=== PATIENT | male | born 1995 | race Caucasian/White ===

== ENCOUNTER 2018-01-08 13:07 | Emergency (ER) | payer OTHER ==
--- NOTE | 2018-01-08 13:12 | EDM.PDOC ---
ED HPI GENERAL MEDICAL PROBLEM - General Chief Complaint: Abdominal Pain Stated Complaint: BACK AND STOMACH HURTS Time Seen by Provider: 01/08/18 13:11 Source of Information: Reports: Patient History Limitations: Reports: No Limitations - History of Present Illness INITIAL COMMENTS - FREE TEXT/NARRATIVE: HISTORY AND PHYSICAL: History of present illness: Patient is a 22-year-old male who presents to the emergency room today with complaints of left low back pain 1 month. He states intermittently the pain does go to the left lower quadrant. No chills, chest pain, shortness of breath or cough. Denies any nausea, vomiting, diarrhea, constipation or dysuria. Denies any testicular pain, swelling or erythema. No concerns of STD eyes. Review of systems: As per history of present illness and below otherwise all systems reviewed and negative. Past medical history: As per history of present illness and as reviewed below otherwise noncontributory. Surgical history: As per history of present illness and as reviewed below otherwise noncontributory. Social history: No reported history of drug or alcohol abuse. Family history: As per history of present illness and as reviewed below otherwise noncontributory. Physical exam: General: Well-developed and well-nourished 22-year-old male. Alert and oriented. Nontoxic appearing and in no acute distress. HEENT: Atraumatic, normocephalic, pupils equal and reactive bilaterally, negative for conjunctival pallor or scleral icterus, mucous membranes moist, throat clear, neck supple, nontender, trachea midline. No drooling or trismus noted. No meningeal signs Lungs: Clear to auscultation, breath sounds equal bilaterally, chest nontender. Heart: S1S2, regular rate and rhythm without overt murmur Abdomen: Soft, nondistended, nontender. Negative for masses or hepatosplenomegaly. Negative for costovertebral tenderness. Pelvis: Stable nontender. Genitourinary: Deferred. Rectal: Deferred. Skin: Intact, warm, dry. No lesions or rashes noted. Extremities: Atraumatic, negative for cords or calf pain. Neurovascular unremarkable. C-spine/Back: No pinpoint vertebral tenderness upon palpation. No crepitus, step -offs or obvious deformities noted. He does have some paraspinous lumbar muscular pain to the left side. Denies any urinary or fecal incontinence. Denies any numbness or tingling to distal extremity.. Neuro: Awake, alert, oriented. Cranial nerves II through XII unremarkable. Cerebellum unremarkable. Motor and sensory unremarkable throughout. Exam nonfocal. Notes: Lab work is unremarkable. Upon my physical examination it does appear to be muscle related. He has pain when palpating to the left lumbar region. Currently is not having any abdominal pain or groin discomfort. We will give him Flexeril diclofenac with education. Encouraged him to follow up with his primary care provider if symptoms do not improve. He voices understanding and is agreeable to plan of care. Denies any further questions or concerns at this time. Diagnostics: CBC, CMP, UA Therapeutics: NOne Prescription: Flexeril (#20) Diclofenac (#30) Impression: Low back Pain Plan: 1. Please rest and ice the area. 2. Take your medications as directed. Flexeril may cause drowsiness a do not take it will driving her needing to be functioning outside of the house. Do not take any additional NSAID such as ibuprofen or Aleve while taking the diclofenac. Please take with food. 3. Follow-up with your primary care provider in the next 1-2 days. Return to the ED as needed and as discussed. Definitive disposition and diagnosis as appropriate pending reevaluation and review of above. Left Abdomen Pain Score (Numeric/FACES): 7 - Related Data Allergies Allergy/AdvReac Type Severity Reaction Status Date / Time No Known Allergies Allergy Verified 01/08/18 13:28 Home Meds: Home Meds . [No Known Home Meds] 01/08/18 [History] ED ROS GENERAL - Review of Systems Review Of Systems: ROS reveals no pertinent complaints other than HPI. ED EXAM, GI/ABD - Physical Exam Exam: See Below (See dictation) Course - Vital Signs Last Recorded V/S: Last Vital Signs Temp 97.4 F 01/08/18 13:26 Pulse 59 L 01/08/18 13:26 Resp 18 01/08/18 13:26 BP 122/71 01/08/18 13:26 Pulse Ox 97 01/08/18 13:26 - Orders/Labs/Meds Orders: Active Orders 24 hr Category Date Time Status UA W/MICROSCOPIC [URIN] Stat Lab 01/08/18 13:50 Ordered Labs: Laboratory Tests 01/08/18 01/08/18 01/08/18 Range/Units 13:48 13:48 13:50 WBC 5.97 (4.0-11.0) K/uL RBC 4.96 (4.50-5.90) M/uL Hgb 15.9 (13.0-17.0) g/dL Hct 45.5 (38.0-50.0) % MCV 91.7 (80.0-98.0) fL MCH 32.1 H (27.0-32.0) pg MCHC 34.9 (31.0-37.0) g/dL RDW Std Deviation 42.8 (28.0-62.0) fl RDW Coeff of [place] 13 (11.0-15.0) % Plt Count 222 (150-400) K/uL MPV 10.10 (7.40-12.00) fL Neut % (Auto) 55.5 (48.0-80.0) % Lymph % (Auto) 34.8 (16.0-40.0) % [place] % (Auto) 8.2 (0.0-15.0) % Eos % (Auto) 1.2 (0.0-7.0) % Baso % (Auto) 0.3 (0.0-1.5) % Neut # (Auto) 3.3 (1.4-5.7) K/uL Lymph # (Auto) 2.1 (0.6-2.4) K/uL [place] # (Auto) 0.5 (0.0-0.8) K/uL Eos # (Auto) 0.1 (0.0-0.7) K/uL Baso # (Auto) 0.0 (0.0-0.1) K/uL Nucleated RBC % 0.0 /100WBC Nucleated RBCs # 0 K/uL Sodium 140 (136-148) mmol/L Potassium 4.5 (3.5-5.1) mmol/L Chloride 106 (98-107) mmol/L Carbon Dioxide 29.4 (21.0-32.0) mmol/L BUN 14 (7.0-18.0) mg/dL Creatinine 1.1 (0.8-1.3) mg/dL Est Cr Clr Drug Dosing 105.34 mL/min Estimated GFR (MDRD) > 60.0 ml/min Glucose 97 (74-106) mg/dL Calcium 9.3 (8.5-10.1) mg/dL Total Bilirubin 0.3 (0.2-1.0) mg/dL AST 26 (15-37) IU/L ALT 32 (14-63) IU/L Alkaline Phosphatase 66 (46-116) U/L Total Protein 7.6 (6.4-8.2) g/dL Albumin 4.3 (3.4-5.0) g/dL Globulin 3.3 (2.0-3.5) g/dL Albumin/Globulin Ratio 1.3 (1.3-2.8) Urine Color YELLOW Urine Appearance SLT CLOUDY Urine pH 7.0 (5.0-8.0) Ur Specific [place] 1.010 (1.001-1.035) Urine Protein NEGATIVE (NEGATIVE) mg/dL Urine Glucose (UA) NEGATIVE (NEGATIVE) mg/dL Urine Ketones NEGATIVE (NEGATIVE) mg/dL Urine Occult Blood NEGATIVE (NEGATIVE) Urine Nitrite NEGATIVE (NEGATIVE) Urine Bilirubin NEGATIVE (NEGATIVE) Urine Urobilinogen 0.2 (<2.0) EU/dL Ur Leukocyte Esterase TRACE (NEGATIVE) Urine RBC NONE SEEN (0-2/HPF) Urine WBC 0-2 (0-5/HPF) Ur Epithelial Cells RARE (NONE-FEW) Amorphous Sediment MODERATE (NEGATIVE) Urine Bacteria RARE (NEGATIVE) Departure - Departure Time of Disposition: 14:20 Disposition: Home, Self-Care 01 Clinical Impression: Lumbar back pain - Discharge Information Instructions: Back Pain, Adult, [id number] Referrals: PCP,None [Primary Care Provider] - Forms: ED Department Discharge Additional Instructions: The following information is given to patients seen in the emergency department who are being discharged to home. This information is to outline your options for follow-up care. We provide all patients seen in our emergency department with a follow-up referral. The need for follow-up, as well as the timing and circumstances, are variable depending upon the specifics of your emergency department visit. If you don't have a primary care physician on staff, we will provide you with a referral. We always advise you to contact your personal physician following an emergency department visit to inform them of the circumstance of the visit and for follow-up with them and/or the need for any referrals to a consulting specialist. The emergency department will also refer you to a specialist when appropriate. This referral assures that you have the opportunity for follow-up care with a specialist. All of these measure are taken in an effort to provide you with optimal care, which includes your follow-up. Under all circumstances we always encourage you to contact your private physician who remains a resource for coordinating your care. When calling for follow-up care, please make the office aware that this follow-up is from your recent emergency room visit. If for any reason you are refused follow-up, please contact the [facility] Emergency Department at and asked to speak to the emergency department charge nurse. [facility] [address] [place] [address] 1. Please rest and ice the area. 2. Take your medications as directed. Flexeril may cause drowsiness a do not take it will driving her needing to be functioning outside of the house. Do not take any additional NSAID such as ibuprofen or Aleve while taking the diclofenac. Please take with food. 3. Follow-up with your primary care provider in the next 1-2 days. Return to the ED as needed and as discussed. - My Orders Last 24 Hours: My Active Orders 01/08/18 13:50 UA W/MICROSCOPIC [URIN] Stat - Assessment/Plan Last 24 Hours: My Active Orders 01/08/18 13:50 UA W/MICROSCOPIC [URIN] Stat
[2018-01-08 14:15] LABS: CHLORIDE,CL 106 mmol/L (98-107); SODIUM,NA 140 mmol/L (136-148)
== END 2018-01-08 14:33 | disposition home or self-care (01) ==
LOC: MW.ED 13:07
DX: M54.5 Low back pain (principal)
CPT/HCPCS: 36415; 80053; 81001; 85025; 99284

== ENCOUNTER 2019-03-10 14:38 | Emergency (ER) | payer BC, OTHER ==
--- NOTE | 2019-03-10 14:59 | EDM.PDOC ---
ED HPI GENERAL MEDICAL PROBLEM - General Chief Complaint: Genitourinary Problem Stated Complaint: TESTICULAR PAIN Time Seen by Provider: 03/10/19 14:44 Source of Information: Reports: Patient History Limitations: Reports: No Limitations - History of Present Illness INITIAL COMMENTS - FREE TEXT/NARRATIVE: HISTORY AND PHYSICAL: History of present illness: Patient is a 24-year-old male presents to the ED today with concern of left testicular swelling/pain 3-4 days. Patient states he had this at one point when he was 13 years old and was told he had epididymitis. Patient states he's only had one sexual partner in the past few months. Patient denies any trauma or injury to the area. Patient denies any other symptoms or concerns at this time. Patient denies fever, chills, chest pain, shortness of breath, or cough. Denies headache, neck stiff ness, change in vision, syncope, or near syncope. Denies nausea, vomiting, abdominal pain, diarrhea, constipation, or dysuria. Has not noted any blood in urine or stool. Patient has been eating and drinking appropriately. Review of systems: As per history of present illness and below otherwise all systems reviewed and negative. Past medical history: As per history of present illness and as reviewed below otherwise noncontributory. Surgical history: As per history of present illness and as reviewed below otherwise noncontributory. Social history: See social history for further information Family history: As per history of present illness and as reviewed below otherwise noncontributory. Physical exam: General: Patient is alert, oriented, and in no acute distress. Patient sitting comfortably on exam table. HEENT: Atraumatic, normocephalic, pupils equal and reactive bilaterally, negative for conjunctival pallor or scleral icterus, mucous membranes moist, TMs normal bilaterally, throat clear, neck supple, nontender, trachea midline. No drooling or trismus noted. No meningeal signs. No hot potato voice noted. Lungs: Clear to auscultation, breath sounds equal bilaterally, chest nontender. Heart: S1S2, regular rate and rhythm without overt murmur Abdomen: Soft, nondistended, nontender. Negative for masses or hepatosplenomegaly. Negative for costovertebral tenderness. Pelvis: Stable nontender. Genitourinary: No rashes ulcers, scars, nodules, induration, penile discharge, scrotal masses, or obvious hernia. Patient does have pain with palpation of the left epididymis. Rectal: Deferred. Skin: Intact, warm, dry. No lesions or rashes noted. Extremities: Atraumatic, negative for cords or calf pain. Neurovascular unremarkable. Neuro: Awake, alert, oriented. Cranial nerves II through XII unremarkable. Cerebellum unremarkable. Motor and sensory unremarkable throughout. Exam nonfocal. Notes: Discussed the importance for follow-up with urologist. Voices understanding and is agreeable to plan of care. Denies any further questions or concerns at this time. Diagnostics: UA, gonorrhea and Chlamydia, scrotum and contents US Therapeutics: Rocephin Prescription: Doxycycline Impression: Epididymitis Plan: 1. Take medication as prescribed. You can alternate ibuprofen and Tylenol as directed for pain and discomfort. 2. Follow-up with urologist as discussed. The number has been provided above for you to call and set up an appointment. 3. Return to the ED as needed and as discussed. Definitive disposition and diagnosis as appropriate pending reevaluation and review of above. Left testical Pain Score (Numeric/FACES): 8 - Related Data Allergies Allergy/AdvReac Type Severity Reaction Status Date / Time No Known Allergies Allergy Verified 03/10/19 14:44 Home Meds: Home Meds . [No Known Home Meds] 03/10/19 [History] Past Medical History - Past Health History Medical/Surgical History: Denies Medical/Surgical History - Infectious Disease History Infectious Disease History: Reports: None - Past Surgical History HEENT Surgical History: Reports: Oral Surgery GI Surgical History: Reports: Appendectomy Social & Family History - Family History Family Medical History: Noncontributory - Caffeine Use Caffeine Use: Reports: Coffee ED ROS GENERAL - Review of Systems Review Of Systems: ROS reveals no pertinent complaints other than HPI. ED EXAM, GENERAL - Physical Exam Exam: See Below (See dictation) Course - Vital Signs Last Recorded V/S: Last Vital Signs Temp 97.3 F 03/10/19 14:44 Pulse 78 03/10/19 14:44 Resp 16 03/10/19 14:44 BP 138/80 03/10/19 14:44 Pulse Ox 97 03/10/19 14:44 - Orders/Labs/Meds Orders: Active Orders 24 hr Category Date Time Status Scrotal Duplex Ltd [US] Stat Exams 03/10/19 Taken CHLAMYDIA AND GONORRHEA BY [facility] Stat Lab 03/10/19 15:00 Received Labs: Laboratory Tests 03/10/19 Range/Units 15:00 Urine Color YELLOW Urine Appearance SLT CLOUDY Urine pH 8.0 (5.0-8.0) Ur Specific [place] 1.020 (1.001-1.035) Urine Protein NEGATIVE (NEGATIVE) mg/dL Urine Glucose (UA) NEGATIVE (NEGATIVE) mg/dL Urine Ketones NEGATIVE (NEGATIVE) mg/dL Urine Occult Blood NEGATIVE (NEGATIVE) Urine Nitrite NEGATIVE (NEGATIVE) Urine Bilirubin NEGATIVE (NEGATIVE) Urine Urobilinogen 0.2 (<2.0) EU/dL Ur Leukocyte Esterase NEGATIVE (NEGATIVE) Meds: Medications Discontinued Medications Generic Name Dose Route Start Last Admin Trade Name Freq PRN Reason Stop Dose Admin Ceftriaxone Sodium 1 gm 03/10/19 15:47 Rocephin IM 03/10/19 15:48 ONETIME ONE Departure - Departure Time of Disposition: 15:53 Disposition: Home, Self-Care 01 Clinical Impression: Epididymitis - Discharge Information Instructions: Scrotal Swelling, Epididymitis Referrals: PCP,None [Primary Care Provider] - Forms: ED Department Discharge Additional Instructions: The following information is given to patients seen in the emergency department who are being discharged to home. This information is to outline your options for follow-up care. We provide all patients seen in our emergency department with a follow-up referral. The need for follow-up, as well as the timing and circumstances, are variable depending upon the specifics of your emergency department visit. If you don't have a primary care physician on staff, we will provide you with a referral. We always advise you to contact your personal physician following an emergency department visit to inform them of the circumstance of the visit and for follow-up with them and/or the need for any referrals to a consulting specialist. The emergency department will also refer you to a specialist when appropriate. This referral assures that you have the opportunity for follow-up care with a specialist. All of these measure are taken in an effort to provide you with optimal care, which includes your follow-up. Under all circumstances we always encourage you to contact your private physician who remains a resource for coordinating your care. When calling for follow-up care, please make the office aware that this follow-up is from your recent emergency room visit. If for any reason you are refused follow-up, please contact the [facility] Emergency Department at and asked to speak to the emergency department charge nurse. [facility] [address] [place] [id number] [facility] [address] [place] [id number] [facility] - Urology, Dr. Farnsworth [address] [place] [id number] 1. Take medication as prescribed. You can alternate ibuprofen and Tylenol as directed for pain and discomfort. 2. Follow-up with urologist as discussed. The number has been provided above for you to call and set up an appointment. 3. Return to the ED as needed and as discussed. - My Orders Last 24 Hours: My Active Orders 03/10/19 15:00 CHLAMYDIA AND GONORRHEA BY [facility] Stat - Assessment/Plan Last 24 Hours: My Active Orders 03/10/19 15:00 CHLAMYDIA AND GONORRHEA BY [facility] Stat
--- NOTE | 2019-03-10 15:38 | US ---
Testicular ultrasound: Multiple real-time images of the testicles were obtained. Comparison: No prior testicular imaging. Both testicles have a homogeneous ultrasound appearance. No intratesticular abnormality is seen. Both arterial and venous blood flow are seen within the testicles. Minimal bilateral hydroceles are seen. Epididymis are felt to be within normal limits. Measurements: Right testicle: 3.9 x 2.3 x 2.9 cm Left testicle: 4.2 x 2.5 x 2.9 cm Impression: 1. Minimal bilateral hydroceles. 2. No additional abnormality is appreciated on testicular ultrasound exam. Diagnostic code #2 [id number]
[2019-03-10] MEDS ORDERED: cefTRIAXone 1 GM Vial IM ONE (15:47)
[2019-03-10] MEDS ORDERED: Lidocaine 1% 2 ML ONE (15:50)
== END 2019-03-10 16:20 | disposition home or self-care (01) ==
LOC: MW.ED 14:38
DX: N45.1 Epididymitis (principal)
CPT/HCPCS: 76870; 81003; 87491; 87591; 93976; 96372; 99284; J0696; J2001

== ENCOUNTER 2019-10-07 12:50 | Emergency (ER) | payer SELFPAY ==
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
--- NOTE | 2019-10-07 13:38 | CR ---
HISTORY: Right hip pain, trauma. TECHNIQUE: AP pelvis and 2 views of the right hip. COMPARISON: No prior. FINDINGS: There is mild deformity of the right inferior pubic ramus which most likely reflects a minimally displaced fracture. On the lateral hip radiograph, there is also subtle deformity involving the superior pubic ramus suspicious for a minimally displaced fracture. No right proximal femoral fracture. No hip dislocation seen. No widening of the pubic symphysis or sacroiliac joints. 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 Focus of subcortical cystic-like change is noted involving the anterior upper left femoral neck. IMPRESSION: 1. Probable acute minimally displaced fractures of the right superior and inferior pubic rami. 2. No right proximal femoral fracture or hip dislocation. Dictated by Kraig Spear MD @ 10/07/2019 1:36:57 PM Dictated by: Kraig Spear MD @ 10/07/2019 13:37:00 (Electronically Signed)
[2019-10-07] MEDS ORDERED: Ibuprofen 800 MG Tab PO ONE (13:41)
[2019-10-07] MEDS ORDERED: Acetaminophen/HYDROcodone 325-10 MG Tab PO ONE (13:48)
--- NOTE | 2019-10-07 14:27 | CT ---
CT pelvis and hips. Technique: Multiple axial sections were obtained from above the iliac crest inferiorly through the pubic ramus. Reconstructed coronal and sagittal images were obtained. Findings: Fracture is identified within the superior right pubic ramus near the acetabulum. No extension into the acetabulum is seen. No displacement is noted. Fracture is also noted within the inferior right pubic ramus which is nondisplaced. No additional fracture is appreciated. Slight cystic change is noted off the left femoral neck believed to be chronic. Sacroiliac joints are within normal limits. Impression: 1. Nondisplaced superior and inferior pubic rami fracture on the right side. 2. Chronic appearing cystic change within the lateral left femoral neck. Diagnostic code #3 This report was dictated in MDT
== END 2019-10-07 14:50 | disposition home or self-care (01) ==
LOC: MW.ED 12:50
DX: S32.591A Other specified fracture of right pubis, initial encounter for closed fracture (principal); S00.81XA Abrasion of other part of head, initial encounter; V86.59XA Driver of other special all-terrain or other off-road motor vehicle injured in nontraffic accident, initial encounter
CPT/HCPCS: 72192; 73502; 99284; A9270